=== PATIENT | male | born 1980 | race African-American/Black ===

== ENCOUNTER 2017-01-13 18:13 | Emergency (ER) | payer OTHER ==
[~2017-01-13] VITALS: Ht 180.3 cm; Wt 86.2 kg
[2017-01-13 18:24] VITALS: BP 144/83
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
[2017-01-13] MEDS ORDERED: CYCLOBENZAPRINE10 MG ORAL (18:52)
[2017-01-13] MEDS ORDERED: IBUPROFEN600 MG ORAL (18:52)
[2017-01-13 19:23] VITALS: BP 144/83
== END 2017-01-13 19:24 | disposition home or self-care (01) ==
LOC: EMR 18:35
DX: S16.1XXA Strain of muscle, fascia and tendon at neck level, initial encounter (principal); V43.52XA Car driver injured in collision with other type car in traffic accident, initial encounter; Y92.410 Unspecified street and highway as the place of occurrence of the external cause
CPT/HCPCS: 99284

== ENCOUNTER 2018-06-18 11:02 | Emergency (ER) | payer OTHER ==
[~2018-06-18] VITALS: Ht 180.3 cm; Wt 80.7 kg
[~2018-06-18 11:02] MED LIST: CYCLOBENZAPRINE10 MG ORAL; IBUPROFEN600 MG ORAL
[2018-06-18] MEDS ORDERED: Tetanus/Diptheria/Pertussis Vaccine 0.5ml Syr IM ONE (11:30)
--- NOTE | 2018-06-18 11:36 | Emergency Room Report ---
History of Present Illness General Chief Complaint: Upper Extremity Injury Source: Patient Present Illness HPI 38-year-old male presents ED for evaluation. States he was play fighting with a friend and states that he accidentally dislocated his left ring finger today. States that the bone stuck through the skin and he was able to reduce it. Is here for evaluation. Denies any other injuries. Pain is throbbing, 9 out of 10 , nonradiating. Tetanus unknown. No other aggravating relieving factors. Denies any other associated symptoms Allergies: Coded Allergies: No Known Allergies (Unverified , 01/13/17) Patient History Past Medical History: none Past Surgical History: none Pertinent Family History: none Social History: Denies: smoking, alcohol use, drug use Immunizations: UTD Reviewed Nursing Documentation: PMH: Agreed; PSxH: Agreed Nursing Documentation-PMH Past Medical History: No Stated History Review of Systems All Other Systems: negative except mentioned in HPI Physical Exam Vital Signs Date Time Temp Pulse Resp B/P (MAP) Pulse Ox O2 Delivery O2 Flow Rate FiO2 06/18/18 11:05 98.2 73 17 126/74 99 Room Air Sp02 EP Interpretation: reviewed, normal General Appearance: no apparent distress, alert, GCS 15, non-toxic Head: normocephalic Eyes: bilateral eye normal inspection, bilateral eye PERRL ENT: normal ENT inspection Neck: normal inspection Respiratory: normal inspection Cardiovascular #1: normal inspection Gastrointestinal: normal inspection Rectal: deferred Genitourinary: no CVA tenderness Musculoskeletal: tender - L ring finger. TTP PIP joint. 1cm laceration over PIP joint Neurologic: alert, oriented x3, responsive, motor strength/tone normal, sensory intact, speech normal Psychiatric: normal inspection Skin: normal inspection Lymphatic: normal inspection Procedures Laceration/Wound Repair Laceration/Wound Repair : Consent: Verbal Wound Location: upper extremity - L ring finger Wound's Depth, Shape: linear Wound Explored: clean Betadine Prep?: Yes Anesthesia: 1% Lidocaine Wound Debrided: minimal Wound Repaired With: sutures Suture Size/Type: 5:0, proline Layer Closure?: No Sterile Dressing Applied?: Yes Splint Applied?: Yes Type of Splint Applied: finger Sling Applied?: No Patient Tolerated: Well Complications: None Medical Decision Making Diagnostic Impression: Primary Impression: Finger dislocation Qualified Codes: S63.259A - Unspecified dislocation of unspecified finger, initial encounter ER Course Hospital Course 38 yo M presents with L ring finger pain. states he dislocated and reduced it. possibly open Differential diagnoses include: Fracture, dislocation, sprain, contusion Clinical course Patient placed on stretcher. After initial history and physical, I ordered pain medications and Xrays of L hand TDAP given Xrays prelim read shows no acute fracture/dislocation. Is possible that the dislocation was open given the laceration above the PIP joint. however it is reduced. No active bleeding. Wound irrigated. Discussed with Dr. Weiss; he agrees that the wound can be repaired and patient be placed in finger splint and can follow-up with his office for further evaluation. Discussed findings with patient. Agrees with plan. Digital block applied. Laceration repaired. Splint applied Diagnosis - finger dislocation Stable and discharged to home with prescription for [place], Augmentin. wound care instructions given. weight bear as tolerated. Followup with hand. Return to ED if symptoms recur or worsen Other X-Ray Diagnostic Results Other X-Ray Diagnostic Results : X-Ray ordered: L hand # of Views/Limited Vs Complete: 3 View Indication: Pain EP Interpretation: Yes Interpretation: no dislocation, no soft tissue swelling, no fractures Impression: No acute disease Electronically Signed by: Electronically signed by Nakul Tineo MD Last Vital Signs Date Time Temp Pulse Resp B/P (MAP) Pulse Ox O2 Delivery O2 Flow Rate FiO2 06/18/18 11:05 98.2 73 17 126/74 99 Room Air Status: improved Disposition: HOME, SELF-CARE Condition: Stable Scripts Amoxicillin/Potassium Clav 875-125* (AUGMENTIN 875-125 TABLET*) 1 Each Tablet 1 TAB ORAL TWICE A DAY for 10 Days, TAB Prov: Nakul Tineo MD 06/18/18 Hydrocodone Bit/Acetaminophen 5-325* (NORCO 5-325*) 1 Each Tablet 1 TAB ORAL Q6H PRN for For Pain, #10 TAB 0 Refills Prov: Nakul Tineo MD 06/18/18 Referrals: Dixie HERRERA,REFERRING (PCP) Nakul Tineo MD Jun 18, 2018 11:36
[2018-06-18] MEDS ORDERED: NKM (12:34)
--- NOTE | 2018-06-18 12:49 | Diagnostic Imaging Report ---
Indication: Pain Technique: 3 views left hand Comparison: none Findings: No acute fractures. No dislocations. The joint spaces are preserved. Impression: Negative
[2018-06-18] MEDS ORDERED: Lidocaine 1% Plain 30 ml INJ ONE (13:00)
[2018-06-18] MEDS ORDERED: Bacitracin Oint UD TOPIC ONE ×2 (13:29→13:30)
[2018-06-18] MEDS ORDERED: NORCO 5-325 TA1 EACH ORAL (13:32)
[2018-06-18] MEDS ORDERED: AUGMENTIN 875-1 EAC1 ORAL (13:32)
[2018-06-18 13:47] VITALS: BP 126/74
== END 2018-06-18 13:48 | disposition home or self-care (01) ==
LOC: EMR 11:27
DX: S63.255A Unspecified dislocation of left ring finger, initial encounter (principal); S61.215A Laceration without foreign body of left ring finger without damage to nail, initial encounter; X58.XXXA Exposure to other specified factors, initial encounter; Y92.89 Other specified places as the place of occurrence of the external cause; Z23 Encounter for immunization
CPT/HCPCS: 12001; 73130; 90471; 90715; 96372; 96374; 99284; J2001; Z7502